=== PATIENT | female | born 2000 | race Caucasian/White ===

== ENCOUNTER 2022-03-19 14:30 | Emergency (ER) | payer BC, SELFPAY ==
[2022-03-19 14:36] VITALS: BP 144/88; PULSE 88; RESP 18; TEMP 36.9; O2SAT 97; BMI 24.2
[2022-03-19 14:38] VITALS: O2SAT 98
--- NOTE | 2022-03-19 14:54 | CTR_ITS ---
PROCEDURE INFORMATION: Exam: CT Head Without Contrast Exam date and time: 03/19/2022 3:04 PM Age: 21 years old Clinical indication: Pain; Headache; Tension; Additional info: Acute occipital headache TECHNIQUE: Imaging protocol: Computed tomography of the head without contrast. Radiation optimization: All CT scans at this facility use at least one of these dose optimization techniques: automated exposure control; mA and/or kV adjustment per patient size (includes targeted exams where dose is matched to clinical indication); or iterative reconstruction. COMPARISON: No relevant prior studies available. RADIATION DOSE METRICS: Total DLP (mGy-cm): 990.38 FINDINGS: Brain: Normal. No hemorrhage or evidence of acute infarction. No mass effect. Cerebral ventricles: No ventriculomegaly. Paranasal sinuses: Mild left sphenoid sinusitis is noted. Mastoid air cells: Visualized mastoid air cells are well aerated. Bones/joints: Unremarkable. No acute fracture. Soft tissues: Unremarkable. CT/CT head wo con* [id number] IMPRESSION: No acute intracranial abnormality. Mild sinusitis.
--- NOTE | 2022-03-19 14:56 | W.ED.HA ---
HPI - Headache General: Chief Complaint: Headache Stated Complaint: headache/27 hours Time Seen by Provider: 03/19/22 14:39 Source: patient and family Mode of arrival: ambulatory Limitations: no limitations History of Present Illness: This patient presents to our emergency department because of a headache. She states the headache onset was yesterday morning somewhere between 9 and 10 AM. She states she was in bed and got up out of bed and felt pain sharp in nature that seem to come from the back of her head and radiate to the front of her head. She states it has been present since that time. She states she is sensitive to light that bothers her eyes. She states the headache continues as a pressure sharp sensation. She states that she does have pain went forward bending her head or standing up too quickly. She denies any head trauma. She denies any fevers or chills. She denies any weakness or numbness difficulty with vision or speech. She has no history of headaches per se. Family history is unknown as she is adopted individual. She denies any recent upper respiratory symptoms, cough etc. She is nauseated but has not thrown up. She is drank fluids but does not feel like eating. MD elicited complaint: headache Onset description: while at rest Location: frontal and occipital Severity: moderate Quality & Timing: throbbing and pressure Context: occurred at rest Associated symptoms: Reports nausea; Deny chest pain, confusion, fever(s), lightheadedness, rash, syncope or vomiting Review of Systems Const: Denies: fever(s), chills or body aches Eyes: Denies: change in vision ENMT: Reports: ear or mastoid pain; Denies: throat pain, odynophagia or nasal congestion Card: Denies: chest pain, palpitations, edema, lightheadedness or syncope Resp: Denies: dyspnea, productive cough or non-productive cough GI: Reports: nausea; Denies: abdominal pain, vomiting or diarrhea : Denies: flank pain, difficulty voiding, dysuria or urinary frequency Musc: Reports: neck pain; Denies: back pain, extremity pain or extremity swelling Skin/Breast: Denies: rash Neuro: Reports: headache(s); Denies: numbness in extremities, weakness in extremities, sensory changes, dizziness, vertigo, confusion, behavioral changes, Slurred speech present or seizure-like activity Psych: Denies: anxiety or depression Endo: Denies: polyuria or polydipsia Physical Exam Narrative: EXAM NARRATIVE: The patient's lying quietly in a darkened examination room. She makes good eye contact, speech is goal-directed and fluent. She appears to be calm and comfortable. Const: COMMON NORMALS: no acute distress, average body habitus, patient oriented x3, healthy appearing and alert GENERAL APPEARANCE: cooperative and comfortable HENMT: COMMON NORMALS: normocephalic, atraumatic, external ears normal, TM's normal bilaterally, Normal nasal mucous membranes and turbinates present and moist oral mucous membranes HEAD & SCALP: normocephalic and atraumatic FACE & SINUS: normal facial exam, sinuses nontender and face symmetric NOSE: Normal nasal mucous membranes and turbinates present EXTERNAL EAR: Yes external ears normal TYMPANIC MEMBRANE: TM's normal bilaterally Eye: COMMON NORMALS: Equal, round and reactive pupils present, EOMs intact bilaterally and conjunctivae normal CONJUNCTIVA: Yes conjunctivae normal PUPIL: Yes Equal, round and reactive pupils present Neck/C-Spine: COMMON NORMALS: full ROM, Thyroid normal and No carotid bruits THYROID: Thyroid normal OTHER: She is able to range her neck in normal side to side rotation and forward bending however it does cause her some discomfort to do so. Lymph: LYMPHATIC: no lymphadenopathy noted Resp: COMMON NORMALS: normal respiratory effort, No use of accessory muscles and clear to auscultation bilaterally AUSCULTATION: clear to auscultation bilaterally Cardio: COMMON NORMALS: regular rhythm, No murmurs present (Cardio) and Peripheral pulses 2+ throughout RHYTHM: regular rhythm PERIPHERAL PULSES: Peripheral pulses 2+ throughout GI: COMMON NORMALS: Normal to inspection, nondistended, normoactive bowel sounds present and Soft to palpation PALPATION: Yes Soft to palpation : COMMON NORMALS: Yes no CVA tenderness BLADDER/KIDNEY EXAM: Yes no CVA tenderness Back/Pelvis: COMMON NORMALS: no CVA tenderness, thoracic and lumbar spine normal to inspection, thoraco-lumbar ROM normal and straight leg raise negative bilaterally THORACIC SPINE/UPPER BACK: Yes paraspinal muscle tenderness Extremity: COMMON NORMALS: normal to inspection, full ROM, capillary refill normal and no calf tenderness Neuro: COMMON NORMALS: patient oriented x3, moves all extremities, no focal motor deficits, no sensory deficits noted, deep tendon reflexes 2+ bilaterally and gait normal SENSORIUM/ORIENTATION: Yes alert CRANIAL NERVES: Yes CN normal except as noted SPEECH: speech normal Psych: COMMON NORMALS: mental status grossly normal, Normal thought process present and cooperative THOUGHT PROCESS: Normal thought process present Skin: COMMON NORMALS: no rashes or lesions noted and turgor normal GENERAL SKIN EXAM: no rashes or lesions noted and turgor normal Course Reevaluation(s): Reevaluation #1: Patient states she is significantly better. She still has a little bit of soreness in her neck but otherwise her headache is seemingly improved. No new or focal findings on reexamination. She is alert more engaged and smiling and interacting with both me and as well as her family. I reviewed her negative CT scan at this time. I also reviewed that albeit she has a relatively low risk of subarachnoid hemorrhage given the current CT findings it is still not 100% in accurate in ruling out a potential subarachnoid hemorrhage. I reviewed the a lumbar puncture would give us more diagnostic accuracy at this time. She acknowledged and voiced understanding of our discussion and the risks and the limitations of her current evaluation. She currently declines a lumbar puncture. Both her mother and her significant other were present in the room and supported her decision. Time: 16:38 Reevaluation #2: Patient was reexamined. She states she feels at her baseline. She was allowed to get up and ambulate about the room. She states she felt fine had no neck pain, she did not display any ataxia, or other focal findings on her neurologic examination. Time: 17:40 Vital Signs: Vital signs: Vital Signs Temperature 98.4 F 03/19/22 14:36 Pulse Rate 89 03/19/22 16:18 Respiratory Rate 16 03/19/22 16:18 Blood Pressure 110/60 03/19/22 16:18 Pulse Oximetry 100 03/19/22 16:18 Oxygen Delivery Vt thod 03/19/22 16:18 MDM - Headache Medical Decision Making Patient presented to our emergency department with headache. She states the headache began and proceeded to increase over approximately 1 hour period of time the day prior to arrival. She states the headache was frontal occipital throbbing and pressure in nature she declined any history that suggested infection, trauma, history of prior headaches. Her initial evaluation was unremarkable other than some neck soreness without any meningeal signs. Her noncontrast CT scan was reassuring did not show any evidence of subarachnoid hemorrhage or intracranial bleeding. She responded to usual therapy for vascular headaches to include Reglan followed by ketorolac with complete resolution of her symptoms. We emphasized on more than one occasion that the CT scan being at the 24-hour plus timeframe from her onset of her headache had a relatively high sensitivity but that sensitivity was not optimal for the highest sensitivity for potential subarachnoid hemorrhage and that a lumbar puncture would improve our sensitivity for that potential diagnosis. She declined that test and did acknowledge that there was some risk. She had intact decision-making capacity and could voiced understanding. She remained stable and pain-free at the time of reevaluation and was considered stable. It was her desire to be discharged from the emergency department. We discussed return precautions in detail. Does not appear that she has any other serious cause of her headache of the secondary nature at this time-but there are clearly stated limitations to this evaluation in the emergency department this evening. Lab Data I reviewed the patient's lab results. : 03/19/22 15:19 03/19/22 15:[address] 03/19/22 14:54 IMPRESSION: No acute intracranial abnormality. Mild sinusitis. Laboratory Results WBC 12.7 10^3/uL (4.0-10.0) H 03/19/22 15:19 RBC 5.31 10^6/uL (4.1-5.3) H 03/19/22 15:19 Hgb 15.6 g/dL (11.5-15.3) H 03/19/22 15:19 Hct 45.7 % (37.0-47.0) 03/19/22 15:19 MCV 86.1 fl (81-99) 03/19/22 15:19 MCH 29.4 pg (28.0-34.0) 03/19/22 15:19 MCHC 34.1 g/dL (30.0-36.0) 03/19/22 15:19 RDW 12.2 % (12.1-15.1) 03/19/22 15:19 Plt Count 323 10^3/cmm (130-400) 03/19/22 15:19 MPV 10.2 fL (7.4-10.4) 03/19/22 15:19 Neut % (Auto) 75.7 % 03/19/22 15:19 Lymph % (Auto) 16.4 % 03/19/22 15:19 [place] % (Auto) 6.9 % 03/19/22 15:19 Eos % (Auto) 0.5 % 03/19/22 15:19 Baso % (Auto) 0.3 % 03/19/22 15:19 Neut # (Auto) 9.57 10^3/uL (1.8-7.7) H 03/19/22 15:19 Lymph # (Auto) 2.1 10^3/uL (0.8-4.8) 03/19/22 15:19 [place] # (Auto) 0.9 10^3/uL (0.2-0.9) 03/19/22 15:19 Eos # (Auto) 0.1 10^3/uL (0.0-0.8) 03/19/22 15:19 Baso # (Auto) 0.0 10^3/uL (0.0-0.1) 03/19/22 15:19 Nucleated RBC % (auto) 0 % 03/19/22 15:19 Nucleated RBCs # 0.0 /100WBC 03/19/22 15:19 Sodium 138 mmol/L (136-145) 03/19/22 15:19 Potassium 4.1 mmol/L (3.5-5.1) 03/19/22 15:19 Chloride 100 mmol/L (98-107) 03/19/22 15:19 Carbon Dioxide 27 mmol/L (22-29) 03/19/22 15:19 Anion Gap 15.1 (5-19) 03/19/22 15:19 BUN 8 mg/dL (6-20) 03/19/22 15:19 Creatinine 0.7 mg/dL (0.5-0.9) 03/19/22 15:19 GFR Calculation 105.6 mL/min (90-130) 03/19/22 15:19 Glucose 99 mg/dL (65-115) 03/19/22 15:19 Calculated Osmolality 284 mOsm/kg (285-295) L 03/19/22 15:19 Calcium 9.5 mg/dL (8.5-10.5) 03/19/22 15:19 Discharge Plan Discharge Patient Disposition: Home Clinical Impression: Headache Condition: Stable Discharge Orders: Discharge ED (Routine); Ordered 03/19/22 Ordered By: Porfirio Edwards Referrals: Cate Hurst MD [Primary Care Provider] - Discharge Diet: Usual diet Discharge Activity: Resume usual activity Patient Instructions: Opioid Safety Activity Restrictions/Additional Instructions: As we discussed during your emergency department evaluation there was no findings on your clinical or imaging evaluation this evening there was support a serious cause of your headache however we also discussed that there was limitations to this evaluation. Should you have return of your headache, any new or worsening symptoms of any concern return to this or the nearest emergency department for reevaluation. Coding Level of Care Code ED Manager Of [employer] for Chg Fwd Exam Comprehensive
[2022-03-19 15:00] VITALS: BP 144/88; O2SAT 100
[2022-03-19] MEDS: metoclopramide 5 mg/mL SDV 2 mL 10 MG IVP (15:14)
[2022-03-19 15:28] LABS: Basophils % 0.3 %; Eosinophils # 0.1 10^3/uL (0.0-0.8); Eosinophils % 0.5 %; Hematocrit 45.7 % (37.0-47.0); Hemoglobin 15.6 g/dL (11.5-15.3); Lymphocytes # 2.1 10^3/uL (0.8-4.8); Lymphocytes % 16.4 %; Mean Corpuscular HGB Conc 34.1 g/dL (30.0-36.0); Mean Corpuscular Hemoglobin 29.4 pg (28.0-34.0); Mean Corpuscular Volume 86.1 fl (81-99); Mean Platelet Volume 10.2 fL (7.4-10.4); Monocytes # 0.9 10^3/uL (0.2-0.9); Monocytes % 6.9 %; Neutrophils # 9.57 10^3/uL (1.8-7.7); Neutrophils % 75.7 %; Nucleated Red Blood Cells % 0 %; Platelet Count 323 10^3/cmm (130-400); Red Blood Count 5.31 10^6/uL (4.1-5.3); Red Cell Distribution Width 12.2 % (12.1-15.1); White Blood Count 12.7 10^3/uL (4.0-10.0)
[2022-03-19 15:30] VITALS: BP 134/84; O2SAT 97
[2022-03-19 15:52] LABS: Anion Gap 15.1 (5-19); Blood Urea Nitrogen 8 mg/dL (6-20); Calcium 9.5 mg/dL (8.5-10.5); Carbon Dioxide 27 mmol/L (22-29); Chloride 100 mmol/L (98-107); Glomerular Filtration Rate 105.6 mL/min (90-130); Glucose 99 mg/dL (65-115); Osmolality Calculated 284 mOsm/kg (285-295); Potassium 4.1 mmol/L (3.5-5.1); Sodium 138 mmol/L (136-145)
[2022-03-19 16:00] VITALS: O2SAT 98
[2022-03-19 16:18] VITALS: BP 110/60; PULSE 89; RESP 16; O2SAT 100
[2022-03-19] MEDS: ketorolac 30 mg/mL INJ 15 MG IVP (17:25)
== END 2022-03-19 18:28 | disposition home or self-care (01) ==
PROVIDERS: Emergency Provider Emergency Medicine; PCP Family Medicine
DX: R51.9 Headache, unspecified (principal)
CPT/HCPCS: 70450; 80048; 85025; 96374; 96375; 99285; J1885; J2765